=== PATIENT | male | born 1990 | race Caucasian/White ===

== ENCOUNTER 2018-12-02 15:10 | Emergency (ER) | payer SELFPAY ==
[2018-12-02 15:15] VITALS: BP 114/74
--- NOTE | 2018-12-02 16:08 | ED Physician Documentation ---
PD HPI UPPER EXT INJURY - Stated complaint Stated Complaint: FINGER LAC - Chief complaint Chief Complaint: Laceration - History obtained from History obtained from: Patient - History of Present Illness Location: Left, Finger (middle finger palmar aspect) Where injury occurred: Home Timing - onset: Today Timing - duration: Hours Timing - details: Abrupt onset (he was clearing snow with a lightweight and the shovel handle broke, causing a flap tear of skin palmar aspect of the finger. Still with normal sensation. Guarded flexion as skin hurts. But his ability to flex at each IP joint is maintained.) Worsened by: Moving, Palpating Associated symptoms: Weakness, Numbness Review of Systems Neurologic: denies: Focal weakness, Numbness PD PAST MEDICAL HISTORY - Past Medical History Musculoskeletal: None - Present Medications Home Medications: Ambulatory Orders Medication Instructions Recorded Confirmed Amoxicillin 250 mg PO TID 12/02/18 12/02/18 - Allergies Allergies/Adverse Reactions: Allergies Allergy/AdvReac Type Severity Reaction Status Date / Time No Known Drug Allergies Allergy Verified 12/02/18 15:15 PD ED PE NORMAL - Vitals Vital signs reviewed: Yes - General General: Alert and oriented X 3, No acute distress, Well developed/nourished - Derm Derm: Normal color, Warm and dry - Extremities Extremities: Other (left middle finger palmar aspect with lac that has flap shape, extends to fatty tissue, but centrall portion is still adherent to fatty tissue. There is good sensation at tip. Good flexion at IP joints. Small piece of white pain in edge of the wound, easily removed with irrigation. ) - Neuro Neuro: No motor deficit, No sensory deficit Results - Vitals Vitals: Vital Signs - 24 hr 12/02/18 15:14 Temperature 36 C L Heart Rate 85 Respiratory 18 Rate Blood Pressure 114/74 O2 Saturation 100 Oxygen O2 Source Room air Procedures - Laceration (location) left middle finger Length in cm: 3 Wound type: Flap, Contaminated (single small chip of white pain noted. removed with easy irrigation.) Neurovascular status: Sensory intact, Motor intact, Vascular intact Tendon involvement: Tendon intact Anesthesia: Lidocaine 2% (digital block) Wound Preparation: Irrigated copiously NS Skin layer closure: Nylon, Running, Size #-0 - enter number (4), Sutures - enter # (many) Other: Patient tolerated well, No complications, Neurovascular intact, Dressing applied, Tetanus UTD Complexity: Simple Departure - Departure Disposition: Home, Self Care Clinical Impression: Finger laceration Qualifiers: Encounter type: initial encounter Finger: middle finger Damage to nail status: without damage Foreign body presence: without foreign body Laterality: left Qualified Code(s): S61.213A - Laceration without foreign body of left middle finger without damage to nail, initial encounter Condition: Stable Record reviewed to determine appropriate education?: Yes Instructions: ED Laceration Hand Comments: It is okay to wash and shower. Clean off the wound twice a day with soap and water, or peroxide and water. Apply some antibiotic ointment to it to keep it moist. Also to watch for signs of infection such as purulence, redness or increasing pain. Return to your primary care or the ER at the specified time for suture removal. Use the finger splint to protect motion and use of the finger for the first several days at least, even up to a week. However have the finger splint off when rested and do gentle range of motion of the finger several times a day progressively so it does not stiffen up. Recheck if signs of infection. Tylenol or ibuprofen as needed for pains. Discharge Date/Time: 12/02/18 17:36
[2018-12-02] MEDS ORDERED: BACITRACIN OINT TOP ONE (17:17)
== END 2018-12-02 17:36 | disposition home or self-care (01) ==
LOC: ED 15:10
DX: S61.213A Laceration without foreign body of left middle finger without damage to nail, initial encounter (principal); W45.8XXA Other foreign body or object entering through skin, initial encounter; Y92.008 Other place in unspecified non-institutional (private) residence as the place of occurrence of the external cause
CPT/HCPCS: 12001; 99282; 99283; A9270

== ENCOUNTER 2018-12-12 13:38 | Emergency (ER) | payer SELFPAY ==
[2018-12-12 13:47] VITALS: BP 111/89
[2018-12-12] MEDS ORDERED: BACITRACIN OINT TOP STA (13:51)
--- NOTE | 2018-12-12 13:51 | ED Physician Documentation ---
PD HPI WOUND RECHECK - Stated complaint Stated Complaint: SUTURE REMOVAL - Chief complaint Chief Complaint: Laceration - Histroy obtained from History obtained from: Patient - History of Present Illness Location: Left Hand (3rd digit) Timing - onset: How many days ago (10) Pain level max: 0 Pain level now: 0 Associated symptoms: No: Fever, Redness, Swelling, Drainage, Pain Recently seen: Emergency Dept (sutures placed 10 days ago, here for removal) Review of Systems Constitutional: denies: Fever Neurologic: reports: Numbness (to the volar aspect of the L 3rd digit) PD PAST MEDICAL HISTORY - Past Medical History Musculoskeletal: None - Present Medications Home Medications: Ambulatory Orders Medication Instructions Recorded Confirmed Amoxicillin 250 mg PO TID 12/02/18 12/02/18 - Allergies Allergies/Adverse Reactions: Allergies Allergy/AdvReac Type Severity Reaction Status Date / Time No Known Drug Allergies Allergy Verified 12/12/18 13:42 - Social History Does the pt smoke?: No Smoking Status: Never smoker PD ED PE NORMAL - Vitals Vital signs reviewed: Yes - General General: Alert and oriented X 3, No acute distress - Derm Derm: Warm and dry - Extremities Extremities: Other (L 3rd digit. Focal numbness over the middle phalanx. The flap appears well adhered. No signs of infection. Appears vascularly intact. Brisk cap refill) Results - Vitals Vitals: Vital Signs - 24 hr 12/12/18 13:40 Temperature 37 C Heart Rate 87 Respiratory 20 Rate Blood Pressure 111/89 H O2 Saturation 98 Oxygen O2 Source Room air PD MEDICAL DECISION MAKING - ED course Complexity details: considered differential, d/w patient ED course: Sutures were removed by the nurse. Patient tolerated well. No evidence of infection or dehiscence. The numbness will likely take weeks to months to resolve and he was counseled that it may never resolve. Placed back in a splint to ensure full healing of the flap and will have him follow-up closely with his doctor for repeat evaluation. Warnings of infection and instructions on wound care given at bedside. Also counseled on how to minimize scarring. Patient counseled regarding signs and symptoms for which I believe and urgent re- evaluation would be necessary. Patient with good understanding of and agreement to plan and is comfortable going home at this time This document was made in part using voice recognition software. While efforts are made to proofread this document, sound alike and grammatical errors may occur. Departure - Departure Disposition: 01 Home, Self Care Clinical Impression: Visit for suture removal Condition: Good Instructions: ED Wound Check Sutr Remove No Infec Follow-Up: your,doctor in 1 week for a wound check [Other] Comments: The numbness that you are experiencing may be permanent, or may improve over the next few months. Follow-up with your doctor in 1 week for wound check. Return if you worsen, especially for redness, swelling or drainage from the wound. Forms: Activity restrictions Discharge Date/Time: 12/12/18 14:20
== END 2018-12-12 14:20 | disposition home or self-care (01) ==
LOC: ED 13:38
DX: S61.213D Laceration without foreign body of left middle finger without damage to nail, subsequent encounter (principal); X58.XXXD Exposure to other specified factors, subsequent encounter
CPT/HCPCS: 99283; A9270

== ENCOUNTER 2018-12-17 11:57 | Emergency (ER) | payer SELFPAY ==
[2018-12-17 12:03] VITALS: BP 120/80
--- NOTE | 2018-12-17 13:05 | ED Physician Documentation ---
PD HPI WOUND RECHECK - Stated complaint Stated Complaint: WOUND FOLLOW UP - Chief complaint Chief Complaint: Wound - Histroy obtained from History obtained from: Patient - History of Present Illness Location: Left Uppper Extremity (A little over 2 weeks ago he sustained a wound to the left middle finger and had it sutured. He had the stitches out about a week ago but says he was advised to come back today for a wound check. He has no specific complaints.) Review of Systems Constitutional: reports: Reviewed and negative Ears: reports: Reviewed and negative Cardiac: reports: Reviewed and negative Respiratory: reports: Reviewed and negative PD PAST MEDICAL HISTORY - Past Medical History Musculoskeletal: None - Present Medications Home Medications: Ambulatory Orders Medication Instructions Recorded Confirmed Amoxicillin 250 mg PO TID 12/02/18 12/02/18 - Allergies Allergies/Adverse Reactions: Allergies Allergy/AdvReac Type Severity Reaction Status Date / Time No Known Drug Allergies Allergy Verified 12/12/18 13:42 - Social History Does the pt smoke?: No Smoking Status: Never smoker PD ED PE NORMAL - Vitals Vital signs reviewed: Yes - General General: Alert and oriented X 3, No acute distress - Extremities Extremities: Other (There is a large wound mostly over the middle phalanx of the palmar side of the left middle finger with slight dehiscence but no evidence of infection. He has intact two-point discrimination at the tip but has decreased sensation over the wound itself. I discussed with him that was not unexpected and indicates only the surface nerves of the finger as opposed to a digital nerve injury. He was advised on home physical therapy exercises to decrease scar tissue and contracturing.) - Psych Psych: Normal mood, Normal affect Results - Vitals Vitals: Vital Signs - 24 hr 12/17/18 11:59 Temperature 36.8 C Heart Rate 74 Respiratory 18 Rate Blood Pressure 120/80 O2 Saturation 98 Oxygen O2 Source Room air Departure - Departure Disposition: 01 Home, Self Care Clinical Impression: Visit for wound check Condition: Good Record reviewed to determine appropriate education?: Yes Comments: Return for new or specific complaints, do the stretching exercises as shown. Wash it with soap and water once a day and keep it covered.
== END 2018-12-17 13:20 | disposition home or self-care (01) ==
LOC: ED 11:57
DX: T81.30XA Disruption of wound, unspecified, initial encounter (principal); Y84.8 Other medical procedures as the cause of abnormal reaction of the patient, or of later complication, without mention of misadventure at the time of the procedure
CPT/HCPCS: 99281; 99282

== ENCOUNTER 2020-08-15 20:07 | Emergency (ER) | payer SELFPAY ==
[2020-08-15] MEDS ORDERED: TETANUS/DIPHTHERIA/PERTUSSIS 0.5 ML SYRINGE IM ONE (20:16)
[2020-08-15] MEDS ORDERED: BUFFERED LIDOCAINE 10 ML SYRINGE SUBQ STA (20:17)
--- NOTE | 2020-08-15 20:18 | ED Physician Documentation ---
PD HPI WOUND RECHECK - Stated complaint Stated Complaint: DOG BITE/LT FINGER - Chief complaint Chief Complaint: Wound - Histroy obtained from History obtained from: Patient (29-year-old gentleman who is right-handed and up-to-date on tetanus was bitten by a dog on the street just prior to arrival. Isolated injuries on the left hand.) Review of Systems Constitutional: reports: Reviewed and negative Nose: reports: Reviewed and negative Cardiac: reports: Reviewed and negative Respiratory: reports: Reviewed and negative PD PAST MEDICAL HISTORY - Past Medical History Musculoskeletal: None - Past Surgical History Past Surgical History: No - Present Medications Home Medications: Ambulatory Orders Medication Instructions Recorded Confirmed Amoxicillin 250 mg PO TID 12/02/18 12/02/18 Amox/Clav 875/125 [Augmentin] 1 each PO Q12H #14 tablet 08/15/20 - Allergies Allergies/Adverse Reactions: Allergies Allergy/AdvReac Type Severity Reaction Status Date / Time No Known Drug Allergies Allergy Verified 08/15/20 20:09 - Social History Does the pt smoke?: No Smoking Status: Never smoker PD ED PE NORMAL - Vitals Vital signs reviewed: Yes - General General: Alert and oriented X 3, No acute distress - Extremities Extremities: Other (Multiple puncture wounds mostly on the dorsum of the third finger of the left hand but there is also a laceration on the third finger at the base on the ulnar side. He is neurovascular intact at the tip.) - Neuro Neuro: Alert and oriented X 3, Normal speech Results - Vitals Vitals: Vital Signs - 24 hr 08/15/20 20:09 Temperature 36.5 C Heart Rate 68 Respiratory 16 Rate Blood Pressure 126/81 H O2 Saturation 98 Oxygen O2 Source Room air - Rads (name of study) L hand XR Radiology: EMP read contemporaneously (NAD) Procedures - Laceration (location) L hand Length in cm: 3 Wound type: Linear, Into subcut fat Neurovascular status: Sensory intact, Motor intact, Vascular intact Anesthesia: Lidocaine 1%, With bicarb Wound Preparation: Hibiclens, Irrigated copiously NS Skin layer closure: Nylon, Interrupted, Size #-0 - enter number (4-0) Other: Tetanus UTD Complexity: Simple PD MEDICAL DECISION MAKING - ED course ED course: 29-year-old gentleman who is up-to-date on tetanus suffered multiple puncture wounds of the left hand and then there is 1 laceration that requires closure. It was washed out thoroughly and closed. Placed on Augmentin. Given wound care instructions. Departure - Departure Disposition: 01 Home, Self Care Clinical Impression: Animal bite with open wound, Laceration Condition: Good Record reviewed to determine appropriate education?: Yes Instructions: Bites Scratches Animal, ED Laceration Hand Prescriptions: Amox/Clav 875/125 [Augmentin] 1 each PO Q12H #14 tablet Comments: Wound check with your physician in 2 to 3 days given high risk of infection given mechanism. Keep the splint on when you are using it, but when you are relaxing or sleeping you do not need to wear the removable splints. Come back for any signs of infection which would include: Redness, swelling, drainage, increased pain, or fevers. You can wash it soap and water. Keep it covered and moist with bacitracin ointment which is available over the counter; avoid neosporin. Follow-up with your physician inabout 14 days for suture removal.
[2020-08-15] MEDS ORDERED: LIDOCAINE 1% 2 ML VIAL SUBQ STA (20:38)
[2020-08-15] MEDS ORDERED: AMOX/CLAV 875 MG/125 MG TABLET PO STA (20:44)
[2020-08-15] MEDS ORDERED: LIDOCAINE 1% 2 ML VIAL ONE (20:45)
--- NOTE | 2020-08-15 20:47 | XRAY Report ---
PROCEDURE: Hand 3 View LT INDICATIONS: hand inj TECHNIQUE: 3 views of the hand(s) acquired. COMPARISON: None FINDINGS: Bones: No fractures or dislocations. No suspicious bony lesions. Soft tissues: No suspicious soft tissue calcifications. IMPRESSION: No trauma found, reported dog bite, no foreign body suggestive of tooth fragment is seen. Reviewed by: Everardo Sanchez MD on 08/15/2020 8:45 PM PDT Approved by: Everardo Sanchez MD on 08/15/2020 8:45 PM PDT Station ID: [id number]
[2020-08-15 21:09] VITALS: BP 118/73
== END 2020-08-15 21:08 | disposition home or self-care (01) ==
LOC: ED 20:07
DX: S61.255A Open bite of left ring finger without damage to nail, initial encounter (principal); S61.215A Laceration without foreign body of left ring finger without damage to nail, initial encounter; W54.0XXA Bitten by dog, initial encounter; Y92.414 Local residential or business street as the place of occurrence of the external cause; Z23 Encounter for immunization
CPT/HCPCS: 12013; 73130; 90471; 90715; 99282; 99283; A9270

== ENCOUNTER 2023-02-03 17:19 | Emergency (ER) | payer OTHER ==
[2023-02-03 17:29] VITALS: BP 132/78
[2023-02-03] MEDS ORDERED: HYDROcod/ACETAM 5/325 MG TABLET PO STA (18:08)
[2023-02-03] MEDS ORDERED: cephALEXin 250 MG CAPSULE PO STA (18:08)
[2023-02-03] MEDS ORDERED: SULFAMETH/TRIMETH DS 800/160 MG TABLET PO STA (18:08)
--- NOTE | 2023-02-03 18:10 | ED Physician Documentation ---
History of Present Illness - Stated complaint Stated Complaint: FACIAL SWELLING - Chief complaint Chief Complaint: General - History obtained from History obtained from: Patient - Additonal information Additional information: 32-year-old gentleman has had 2 to 3 days of painful swelling of the right chin. He thinks there may have been an ingrown hair there. No history of MRSA. No fevers. PD PAST MEDICAL HISTORY - Past Medical History Musculoskeletal: None - Past Surgical History Past Surgical History: No - Present Medications Home Medications: Ambulatory Orders Medication Instructions Recorded Confirmed HYDROcod/ACETAM 5/325 [[place] 5/325] 1 - 2 tab PO Q6H PRN #15 tablet 02/03/23 Sulfamethox/Trimeth 800/160 1 each PO BID #14 tablet 02/03/23 [Bactrim Ds 800/160] cephALEXin [Keflex] 500 mg PO Q6H #28 cap 02/03/23 - Allergies Allergies/Adverse Reactions: Allergies Allergy/AdvReac Type Severity Reaction Status Date / Time No Known Drug Allergies Allergy Verified 08/15/20 20:09 - Social History Does the pt smoke?: No Smoking Status: Never smoker PD ED PE NORMAL - Vitals Vital signs reviewed: Yes - General General: Alert and oriented X 3, No acute distress - HEENT HEENT: Other (He has skin changes consistent with a staphylococcal skin infection of the skin of the right chin. Minimal purulent drainage, but a culture was sent from 1 small sore.) - Neuro Neuro: Alert and oriented X 3, Normal speech Results - Vitals Vitals: Vital Signs - 24 hr 02/03/23 17:24 Temperature 36.7 C Heart Rate 95 Respiratory 18 Rate Blood Pressure 132/78 H O2 Saturation 100 Oxygen O2 Source Room air Departure - Departure Disposition: Home, Self Care Clinical Impression: Facial cellulitis Condition: Good Record reviewed to determine appropriate education?: Yes Instructions: ED Cellulitis Facial Prescriptions: Sulfamethox/Trimeth 800/160 [Bactrim Ds 800/160] 1 each PO BID #14 tablet cephALEXin [Keflex] 500 mg PO Q6H #28 cap HYDROcod/ACETAM 5/325 [[place] 5/325] 1 - 2 tab PO Q6H PRN #15 tablet PRN Reason: Pain Comments: I sent your prescription electronically to the [facility] in [place]. Given that you have an infection on your face oblique you to return on Sunday for recheck and culture review. Sooner if worse. I am prescribing a short course of narcotic pain medication for you. These are potentially dangerous and addictive medications that should be used carefully. These medications may constipate you. Take an [id number] stool softener (docusate) twice daily with plenty of water while taking these medications. If you go 24 hours without a bowel movement, take [id number] miralax, per package instructions. Do not drink or drive while taking these medications. If you received narcotic or sedating medications while in the emergency department, do not drive for 24 hours. Store this medication in a safe, secure place and out of reach of children. It is a violation of federal law to give or sell this medication to another person or to use in a manner other than prescribed. The ED will not refill narcotic prescriptions, including prescriptions lost or stolen. To dispose of unwanted medications: 1. [facility] at [address] in [place] has a medication drop box. They accept prescription medications (in pill form) Sunday through Sunday 9:00 a.m. to 5:00 p.m. 2. [facility] accepts prescription medications (in pill form only) for disposal year round. Call for more info rmation. 3. Contact the [facility] for the next [facility] sponsored prescription drug collection event. , [phone], or [phone]; Note that many narcotic pain relievers also contain Tylenol/acetaminophen. Please ensure that your total dose of acetaminophen from all sources does not exceed 3 g (3000 mg) per day.
== END 2023-02-03 18:24 | disposition home or self-care (01) ==
LOC: ED 17:19
DX: L03.211 Cellulitis of face (principal)
CPT/HCPCS: 87070; 87181; 87205; 99283; A9270

== ENCOUNTER 2023-02-05 15:58 | Emergency (ER) | payer OTHER ==
[2023-02-05 16:09] VITALS: BP 113/97
--- NOTE | 2023-02-05 16:15 | ED Physician Documentation ---
PD HPI WOUND RECHECK - Stated complaint Stated Complaint: FOLLOW UP/ FACIAL SWELLING - Chief complaint Chief Complaint: Wound - Histroy obtained from History obtained from: Patient - Additional information Additional information: 32-year-old gentleman was seen 2 days ago for facial cellulitis and advised to return for recheck. He has somewhat improved but there is still significant swelling. No fevers. No trouble with the antibiotics. At this point the culture taken from the other day is gram-positive growth to be further identified. PD PAST MEDICAL HISTORY - Past Medical History Musculoskeletal: None - Past Surgical History Past Surgical History: No - Present Medications Home Medications: Ambulatory Orders Medication Instructions Recorded Confirmed HYDROcod/ACETAM 5/325 [[place] 5/325] 1 - 2 tab PO Q6H PRN #15 tablet 02/03/23 Sulfamethox/Trimeth 800/160 1 each PO BID #14 tablet 02/03/23 [Bactrim Ds 800/160] cephALEXin [Keflex] 500 mg PO Q6H #28 cap 02/03/23 - Allergies Allergies/Adverse Reactions: Allergies Allergy/AdvReac Type Severity Reaction Status Date / Time No Known Drug Allergies Allergy Verified 02/05/23 16:09 - Social History Does the pt smoke?: No Smoking Status: Never smoker PD ED PE NORMAL - Vitals Vital signs reviewed: Yes - General General: Alert and oriented X 3, No acute distress - Neck Neck: Other (Significantly improved cellulitis to the right side of the chin but now more fluctuant inferiorly.) - Neuro Neuro: Alert and oriented X 3, Normal speech Results - Vitals Vitals: Vital Signs - 24 hr 02/05/23 16:06 Temperature 36.1 C L Heart Rate 96 Respiratory 16 Rate Blood Pressure 113/97 H O2 Saturation 100 Oxygen O2 Source Room air Procedures - Abscess I&D (location) r chin Preparation: Alcohol, Lidocaine 2%, With epi Incision: Incised with scalpel, Purulent drainage, Loculations broken, Packed, Culture obtained Other: Pt tolerated well, Dressing applied PD Medical Decision Making - ED course ED course: At this point there was more of a defined abscess and incision and drainage and repeat culture were done with packing. Departure - Departure Disposition: 01 Home, Self Care Clinical Impression: Abscess Condition: Good Record reviewed to determine appropriate education?: Yes Instructions: ED Abscess IandD Comments: Continue the current antibiotics. The culture from the other day is not growing anything specific yet and we are repeating it now that we have more fluid. Return or pull the packing out in 2 days, Sunday.
== END 2023-02-05 17:39 | disposition home or self-care (01) ==
LOC: ED 15:58
DX: L02.01 Cutaneous abscess of face (principal)
CPT/HCPCS: 10060